=== PATIENT | male | born 1975 | race Caucasian/White ===

== ENCOUNTER 2018-04-09 20:00 | Emergency (ER) | payer SELFPAY ==
[2018-04-09] MEDS ORDERED: Ibuprofen 800 MG TAB ONE (20:36)
== END 2018-04-09 21:00 | disposition home or self-care (01) ==
LOC: MADERS 20:00
DX: M76.51 Patellar tendinitis, right knee (principal); F17.210 Nicotine dependence, cigarettes, uncomplicated
CPT/HCPCS: 99283